=== PATIENT | female | born 1960 ===

== ENCOUNTER 2025-07-17 14:01 | Outpatient (CLI) | payer MEDICARE, BC ==
[~2025-07-17 14:01] MED LIST: Iopamidol 370 76% 100 ML VIAL ONE
== END 2025-07-17 14:02 | disposition home or self-care (01) ==
LOC: CT 14:01
PROVIDERS: ATTEND Internal Medicine Hematology & Oncology
DX: C83.11 Mantle cell lymphoma, lymph nodes of head, face, and neck (principal); D70.8 Other neutropenia; M89.9 Disorder of bone, unspecified; R60.0 Localized edema
CPT/HCPCS: 73201; J1642; Q9967